=== PATIENT | female | born 1980 | race Caucasian/White ===

== ENCOUNTER 2020-12-01 15:27 | Outpatient (REF) | payer OTHER, SELFPAY | END 2020-12-01 15:28 | disposition home or self-care (01) | LOC: HO.LAB 15:27 | PROVIDERS: Visit Provider Internal Medicine | DX: Z20.822 Contact with and (suspected) exposure to COVID-19 (principal) | CPT/HCPCS: C9803; U0003; U0005 ==

== ENCOUNTER 2024-11-09 01:02 | Emergency (ER) | payer OTHER, SELFPAY ==
[2024-11-09 01:05] VITALS: BP 124/88; PULSE 98; RESP 20; TEMP 37; O2SAT 99; BMI 33.1
[2024-11-09 05:36] VITALS: BP 136/85; PULSE 81; RESP 14; TEMP 36.6; O2SAT 99
--- NOTE | 2024-11-09 06:17 | ED_ITS ---
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 Patient states that couple of days ago, patient went to the beach and she got sunburn. Patient states she was up in the sun for 8 hours. Patient did not wear any sudden protected. Patient took Benadryl at home because she has been itchy and applying aloe vera with no relief. Related Data Previous Rx's ?Medication ?Instructions ?Recorded bacitracin 500 unit/gram topical 1 appl topical Q8H #2 0 ea 11/09/24 packet ketorolac 10 mg tablet 10 mg PO Q8H PRN pain #12 ta bs 11/09/24 Allergies Allergy/AdvReac Type Severity Reaction Status Date / Time No Known Allergies Allergy Verified 11/09/24 01:11 Review of Systems Review of Systems: Constitutional : No Weight loss, No Fever, No Chills, No Night Sweats, No Fatigue, No Malaise ENT/Mouth : No Hearing loss, No Ear Pain, No Nasal Congestion, No Sinus Pain, No Hoarseness, No sore throat, No Rhinorrhea, No Swallowing Difficulty Eyes: No Eye Pain, No Swelling, No Redness, No Foreign Body, No Discharge, No Vision Changes Cardiovascular : No Chest Pain, No SOB, No Dyspnea on Exertion, No Orthopnea, No Edema, No Palpitations Respiratory : No Cough, No Sputum, No Wheezing, No Smoke Exposure, No Dyspnea Gastrointestinal : No Nausea, No Vomiting, No Diarrhea, No Constipation, No abdominal Pain, No Hematochezia, No Melena Genitourinary : no irregular bleeding, No Dysuria, No Urinary Frequency, No Hematuria, No Urinary Incontinence, No Urgency, No Flank Pain, No Urinary Flow Changes, No Hesitancy Musculoskeletal : No joint pain, No Myalgias, No Joint Swelling Skin : Complaining of sunburn Neuro : No Weakness, No Numbness, No Paresthesias, No Loss of Consciousness, No Dizziness, No Headache Psych : No Anxiety/Panic, No Depression, No SI/HI/AH/VH, No Social Issues, Heme/Lymph: No Bruising, No Bleeding,No Lymphadenopathy Endocrine : No Polyuria, No Polydipsia, No Temperature Intolerance [facility] Social History Social History Advance Directives: No Advance Directives Information Provided: Yes Physical Exam Exam: Exam: Appearance: Alert. Oriented X3. No acute distress. Eyes: Pupils equal, round and reactive to light. ENT: Pharynx normal. Neck: Normal inspection. Neck supple. No lymph nodes noted. No crepitus CVS: Normal heart rate and rhythm. Pulses normal. Normal S1 and S2 Respiratory: No respiratory distress. Breath sounds normal. No Wheezing. No rales Abdomen: Soft and nontender. No rigidity. No distention. Skin: Skin warm and dry. Patient has a sunburn in the shoulders chest and back, no vesicles Extremities: No lower extremity edema. No Lacerations. No Rash Neuro: Oriented X 3. No motor deficit. No sensory deficit. Moving all extremities. No slurred speech. CN 2 through 12 grossly intact Psych: calm, cooperative, normal affect Vital Signs: Vital Signs: Last Vital Signs Temp 97.9 F 11/09/24 05:36 Pulse 81 11/09/24 05:36 Resp 14 11/09/24 05:36 BP 136/85 11/09/24 05:36 Pulse Ox 99 11/09/24 05:36 O2 Del Method Room Air 11/09/24 05:36 BMI result Body Mass Index 33.1 Course Course Course Narrative: Patient was exposed to the sun for 8 hours without applying some block, now complaining of sunburn pain Medical Decision Making Medical Decision Making MDM Narrative: Patient was given IM ketorolac to help with the pain. Discussed with the patient that unfortunately, the skin has to heal on its own. Patient instructed to use topical aloe vera and Benadryl as needed. Discharge Plan Discharge Clinical Impression: Sunburn Patient Disposition: Home, Self-Care Instructions: Sunburn (ED), Cold Compress or Soak (ED) Additional Instructions: Please follow-up with your primary care physician tomorrow. If you have any worsening or new symptoms, please return to the emergency room or call 911 Prescriptions: New ketorolac 10 mg tablet 10 mg PO Q8H PRN (Reason: pain) Qty: 12 0RF Rx Instructions: Do not use this medication with any NSAIDs, only Tylenol if needed bacitracin 500 unit/gram packet 1 appl topical Q8H Qty: 20 0RF Print Language: Frisian
[2024-11-09 06:38] VITALS: BP 136/85; PULSE 81; RESP 14; TEMP 36.6; O2SAT 99
== END 2024-11-09 06:40 | disposition home or self-care (01) ==
PROVIDERS: Emergency Provider Emergency Medicine
DX: L55.9 Sunburn, unspecified (principal)
CPT/HCPCS: 96372; 99283; 99284; J1885